=== PATIENT | female | born 1990 | race Two or more races ===

== ENCOUNTER 2025-02-26 11:46 | Emergency (ER) | payer SELFPAY ==
[~2025-02-26] VITALS: Ht 157.5 cm; Wt 82.0 kg
--- NOTE | 2025-02-26 12:15 | ED.PDOC ---
GI ASSESSMENT HPI Comments This is a 34 year old female presenting to the ED with chief complaint of abdominal pain. Patient reports that she began to experience epigastric/RUQ abdominal pain at 1am this morning with associated nausea and vomiting. Patient relays that the last food she had eaten was soup the night before. Patient states she still has her gallbladder, only having a previous appendectomy and hysterectomy. Patient denies any drug use, diarrhea, fever, chills, hematemesis, or dysuria. Chief Complaint: Abdominal Pain Time Seen by MD: 12:10 Reviewed Notes: Nurses Notes, Medications, Allergies Allergies: Coded Allergies: NO KNOWN ALLERGIES (Unverified , 02/26/25) Information Source: Patient Mode of Arrival: Ambulatory Timing: Hours Duration: Since onset Prehospital treatment: None Quality: Sharp Vomitus: Watery Stool: Normal Severity: Moderate Recent: None Recent Hx of: None Pain Location: Epigastric, RUQ Modifying Factors: Nothing Associated sign and symptoms: Nausea, Vomiting, Abdominal Pain Past Medical History PAST MEDICAL HISTORY: Denies Surgical History: Appendectomy, , Hysterectomy MEAT SOAKER History: No Pertinent MEAT SOAKER History Family History Family History: Reviewed,noncontributory to illness Social History Smoker: Non-Smoker Alcohol: Denies ETOH Use Drugs: Denies Drug Use Lives In: Home Constitutional: denies: chills, diaphoresis, fatigue, fever, malaise, sweats, weakness, others EENTM: denies: blurred vision, double vision, ear bleeding, ear discharge, ear drainage, ear pain, ear ringing, eye pain, eye redness, hearing loss, mouth pain, mouth swelling, nasal discharge, nose bleeding, nose congestion, nose pain, photophobia, tearing, throat pain, throat swelling, voice changes, others Respiratory: denies: cough, hemoptysis, orthopnea, SOB at rest, shortness of breath, SOB with excertion, stridor, wheezing, others Cardiovascular: denies: chest pain, dizzy spells, diaphoresis, Dyspnea on exertion, edema, irregular heart beat, left arm pain, lightheadedness, palpitations, PND, syncope, others Gastrointestinal: reports: abdominal pain, nausea, vomiting; denies: abdomen distended, blood streaked bowels, constipated, diarrhea, dysphagia, difficulty swallowing, hematemesis, melena, poor appetite, poor fluid intake, rectal bleeding, rectal pain, others Genitourinary: denies: abnormal vagina bleeding, burning, dyspareunia, dysuria, flank pain, frequency, hematuria, incontinence, pain, , vagina discharge, urgency, others Neurological: denies: dizziness, fainting, headache, left sided numbness, left sided weakness, numbness, paresthesia, pre-existing deficit, right sided numbness, right sided weakness, seizure, speech problems, tingling, tremors, weakness, others Musculoskeletal: denies: back pain, gout, joint pain, joint swelling, muscle pain, muscle stiffness, neck pain, others Integumetry: denies: bruises, change in color, change in hair/nails, dryness, laceration, lesions, lumps, rash, wounds, others Allergic/Immunocompromised: denies: Difficulty Healing, Frequent Infections, Hives, Itching, others Hematologic/Lymphatic: denies: anemia, blood clots, easy bleeding, easy bruising, swollen glands, others Endocrine: denies: excessive hunger, excessive sweating, excessive thirst, excessive urination, flushing, intolerance to cold, intolerance to heat, unexplained weight gain, unexplained weight loss, others Psychiatric: denies: anxiety, bipolar disorder, depression, hopeless, panic disorder, schizophrenia, sleepless, suicidal, others All Other Systems: Reviewed and Negative Physical Exam General Appearance: Moderate Distress, Obese HEENT: Normal ENT Inspection, PERRL/EOMI, Pharynx Normal, TMs Normal Neck: Full Range of Motion, Non-Tender, Normal, Normal Inspection Respiratory: Chest Non-Tender, Lungs Clear, No Accessory Muscle Use, No Respiratory Distress, Normal Breath Sounds Cardiovascular: No Edema, No JVD, No Murmur, No Gallop, Normal Peripheral Pulses, Regular Rate/Rhythm Breast Exam: Deferred Gastrointestinal: Epigastric, No Organomegaly, No Pulsatile Mass, Normal Bowel Sounds, RUQ, Soft, Tenderness (Epigastric/RUQ tenderness) Genitalia: Deferred Pelvic: Deferred Rectal: Deferred Extremities: No calf tenderness, Normal capillary refill, Normal inspection, Normal range of motion, Non-tender, No pedal edema Musculoskeletal : Apperance: Normal Neurologic: Alert, gate operator II-XII nml as Tested, No Motor Deficits, Normal Affect, Normal Mood, No Sensory Deficits Cerebellar Function: Normal Reflexes: Normal Skin: Dry, Normal Color, Warm Peripheral Pulses: 1+ carotid (R), 1+ carotid (L) Lymphatic: No Adenopathy Was a procedure done? Was a procedure done?: No GI differential Dx Differential Diagnosis: Cholecystitis, Constipation, Diverticular disease, Gastritis/PUD, Gastroenteritis, Pancreatitis, UTI, Drug toxicity, , Anemia X-Ray, Labs, Meds, VS Vital Signs Date Time Temp Pulse Resp B/P (MAP) Pulse Ox O2 Delivery O2 Flow Rate FiO2 02/26/25 13:20 Room Air* 0 21 02/26/25 13:20 98.1 86 18 103/56 (72) 99 98.1 02/26/25 11:49 98.2 72 18 108/75 98 98.2 Lab Test 02/26/25 12:54 Range/Units White Blood Count 18.4 H 4.4-10.8 10^3/uL Red Blood Count 4.87 4.0-5.20 10^6/uL Hemoglobin 14.4 12.2-16.2 g/dL Hematocrit 42.1 36.0-46.0 % Mean Corpuscular Volume 86.4 80.0-100.0 fL Mean Corpuscular Hemoglobin 29.6 28.0-32.0 pg Mean Corpuscular Hemoglobin Concent 34.3 32.0-36.0 g/dL Red Cell Distribution Width 13.4 11.8-14.3 % Platelet Count 376 140-450 10^3/uL Mean Platelet Volume 7.5 6.9-10.8 fL Neutrophils (%) (Auto) 87.5 H 37.0-80.0 % Lymphocytes (%) (Auto) 10.0 10.0-50.0 % Monocytes (%) (Auto) 2.1 0.0-12.0 % Eosinophils (%) (Auto) 0.2 0.0-7.0 % Basophils (%) (Auto) 0.2 0.0-2.0 % Neutrophils # (Auto) 16.1 H 1.6-8.6 10 ^3/uL Lymphocytes # (Auto) 1.8 0.4-5.4 10 ^3/uL Monocytes # (Auto) 0.4 0-1.3 10 ^3/uL Eosinophils # (Auto) 0 0-0.8 10 ^3/uL Basophils # (Auto) 0 0-0.2 10 ^3/uL Nucleated Red Blood Cells 0.1 % Sodium Level 139 136-145 mmol/L Potassium Level 3.6 3.5-5.1 mmol/L Chloride Level 103 98-107 mmol/L Carbon Dioxide Level 25 20-31 mmol/L Anion Gap 11 5-15 Blood Urea Nitrogen 5 L 9-23 mg/dL Creatinine 0.70 0.550-1.02 mg/dL Glomerular Filtration Rate Calc 115 >90 mL/min BUN/Creatinine Ratio 7.1 L 10.0-20.0 Serum Glucose 104 74-106 mg/dL Calcium Level 9.2 8.7-10.4 mg/dL Magnesium Level 1.9 1.6-2.6 mg/dL Total Bilirubin 0.4 0.2-1.0 mg/dL Aspartate Amino Transferase (AST) 24 13-40 U/L Alanine Aminotransferase (ALT) 21 7-40 U/L Alkaline Phosphatase 115 46-116 U/L Total Protein 7.9 5.7-8.2 g/dL Albumin 5.0 H 3.2-4.8 g/dL Lipase 28 12-53 U/L Beta HCG, Quantitative < 0.0 L 1.5-4.2 mIU/mL Current Medications Medications (Trade) Dose Ordered Sig/Marely Route Start Time Stop Time Status Last Admin Metoclopramide HCl (Reglan Injection) 10 mg ONCE ONCE IV 02/26/25 12:15 02/26/25 12:16 DC 02/26/25 13:40 Sodium Chloride 500 ml @ 500 mls/hr Q1H ONCE IVB 02/26/25 12:15 02/26/25 13:14 DC 02/26/25 13:40 Ketorolac Tromethamine (Toradol Injection) 30 mg ONCE ONCE IV 02/26/25 12:15 02/26/25 12:16 DC 02/26/25 13:[address] [address] Ph: [phone] DIAGNOSTIC IMAGING Diagnostic Imaging Report : [id number] Signed PATIENT: AUGUST GO ACCT: [id number] UNIT: [id number] : 1990 LOC: ER ROOM / BED: / AGE / SEX: 34 / F ADM STATUS: REG ER SERVICE 1206 ORDERING PHYSICIAN: LEÓN HILARIO MD PROCEDURE(s): GBUS - GALLBLADDER REASON: Right epigastric right upper quadrant abdominal pain ORDER NUMBER(s): [id number], ACCESSION NUMBER(s): [id number] INDICATION: Right epigastric right upper quadrant abdominal pain TECHNIQUE: Multiple real-time sonographic images were obtained of the right upper quadrant. COMPARISON: None FINDINGS: The liver demonstrates homogenous echotexture without focal mass lesions. The liver measures 19 cm. There is no intrahepatic or extrahepatic ductal dilatation. The common duct measures 0.6 mm. Gallstones. The gallbladder wall measures 0.4mm and is within normal limits. The right kidney measures 11 cm. The right kidney is normal in contour, size, and shape. The echogenicity is normal. There is no hydronephrosis. The pancreas is not well visualized due to overlying bowel gas. IMPRESSION: Gallstones. hepatomegaly/hepatic steatosis. ATED BY: MIKE HASKINS MD DICTATED DATE/TIME: 02/26/25 1254 SIGNED BY: MIKE HASKINS MD SIGNED DATE/TIME: 02/26/25 1254 CC: X-Ray, Labs, Meds, VS Comment Course in the emergency department eventful patient came in with a right upper quadrant abdominal [place] [address]77 with 87.5% neutrophils normal H&H Urine negative Beta hCG negative Magnesium 1.9 Lipase 28 Gallbladder ultrasound shows gallstones and hepatic steatosis Images Reviewed?: Images reviewed and evaluated by me Time of 1ST Reevaluation: 13:08 Reevaluation 1ST: Unchanged Patient Education/Counseling: Diagnosis, Treatment Family Education/Counseling: Diagnosis, Treatment SEPSIS Sepsis Screen Date sepsis recognized/suspect: Feb 26, 2025 Time Sepsis recognized/suspect: 1149 Recent Procedure: No On Antibiotic Therapy: No Respiratory Rate >20: No Heart Rate >90: No Temp<36 C (96.8 F) or >38.3 C: No SBP <90 or MAP <65 mmHG: No New Acute Mental Status Change: No Is the patient on CPAP, BIPAP,: No Physician Orders Urinalysis (02/26/25 12:06) Heplock Iv (02/26/25 12:06) Gallbladder (8/20/25 12:06) Vital Signs Date Time Temp Pulse Resp B/P (MAP) Pulse Ox O2 Delivery O2 Flow Rate FiO2 02/26/25 13:20 Room Air* 0 21 02/26/25 13:20 98.1 86 18 103/56 (72) 99 98.1 02/26/25 11:49 98.2 72 18 108/75 98 98.2 Laboratory Tests Test 02/26/25 12:54 White Blood Count 18.4 10^3/uL (4.4-10.8) H Medications Medications Dose Ordered Sig/Marely Route Start Time Stop Time Status Last Admin Dose Admin Ketorolac Tromethamine 30 mg ONCE ONCE IV 02/26/25 12:15 02/26/25 12:16 DC 02/26/25 13:40 Metoclopramide HCl 10 mg ONCE ONCE IV 02/26/25 12:15 02/26/25 12:16 DC 02/26/25 13:40 Sodium Chloride 500 ml @ 500 mls/hr Q1H ONCE IVB 02/26/25 12:15 02/26/25 13:14 DC 02/26/25 13:40 Departure 1 Departure Time of Disposition: 14:40 Impression: Primary Impression: Biliary colic Additional Impressions: Cholelithiasis Qualified Codes: K80.20 - Calculus of gallbladder without cholecystitis without obstruction Hepatic steatosis Disposition: HOME / SELF CARE / HOMELESS Condition: Fair Additional Instructions: Push fluids full liquid diet for the next three days and follow up with the PCP e-Prescriptions Naproxen (Naproxen) 375 Mg Tab 1 TAB PO BID for 10 Days, #20 TAB 5 Refills Prov: LEÓN HILARIO MD 02/26/25 Metoclopramide Hcl (Reglan) 10 Mg Tab 10 MG PO BID for 10 Days, #20 TAB Prov: LEÓN HILARIO MD 02/26/25 Discharged With: Self Critical Care Note Critical Care Time?: No Stability Stability form required: No Heart Score Heart Score: Heart Score Response (Comments) Value History N/A 0 EKG N/A 0 Age <45 0 Risk Factors No known risk factors 0 Troponin N/A 0 Total 0 I personally scribed for LEÓN HILARIO MD ([email or web address]) on 02/26/25 at 12:15. Electronically submitted by Bolivar Pena ([email or web address]). I personally scribed for LEÓN HILARIO MD ([email or web address]) on 02/26/25 at 14:13. Electronically submitted by Bolivar Pena ([email or web address]). LEÓN HILARIO MD Feb 26, 2025 12:15
--- NOTE | 2025-02-26 12:56 | DVH ---
INDICATION: Right epigastric right upper quadrant abdominal pain TECHNIQUE: Multiple real-time sonographic images were obtained of the right upper quadrant. COMPARISON: None FINDINGS: The liver demonstrates homogenous echotexture without focal mass lesions. The liver measure s 19 cm. There is no intrahepatic or extrahepatic ductal dilatation. The common duct measures 0.6 mm. Gallstones. The gallbladder wall measures 0.4mm and is within normal limits. The right kidney measures 11 cm. The right kidney is normal in contour, size, and shape. The echog enicity is normal. There is no hydronephrosis. The pancreas is not well visualized due to overlying bowel gas. IMPRESSION: Gallstones. hepatomegaly/hepatic steatosis.
[2025-02-26 13:20] VITALS: BP 103/56; PULSE 86; RESP 18; TEMP 98.1; O2SAT 99
[2025-02-26 13:20] LABS: Hematocrit 42.1 % (36.0-46.0); Hemoglobin 14.4 g/dL (12.2-16.2); Mean Corpuscular Hemoglobin 29.6 pg (28.0-32.0); Mean Corpuscular Volume 86.4 fL (80.0-100.0); Nucleated Red Blood Cells % 0.1 %
[2025-02-26 13:34] LABS: Alanine Aminotransferase 21 U/L (7-40); Alkaline Phosphatase 115 U/L (46-116); Anion Gap 11 (5-15); BUN/Creatinine Ratio 7.1 (10.0-20.0); Calcium 9.2 mg/dL (8.7-10.4); Carbon Dioxide 25 mmol/L (20-31); Chloride 103 mmol/L (98-107); Glucose 104 mg/dL (74-106); Lipase 28 U/L (12-53); Magnesium 1.9 mg/dL (1.6-2.6); Potassium 3.6 mmol/L (3.5-5.1); Sodium 139 mmol/L (136-145); Total Protein 7.9 g/dL (5.7-8.2)
[2025-02-26 13:35] LABS: Albumin 5.0 g/dL (3.2-4.8); Bilirubin, Total 0.4 mg/dL (0.2-1.0); Blood Urea Nitrogen 5 mg/dL (9-23)
[2025-02-26] MEDS: KETOROLAC TROMETH 30 MG/ML 1ML VIAL IV ONE (13:40)
[2025-02-26] MEDS: SODIUM CHLORIDE 0.9% 500 ML IVB ONE (13:40)
[2025-02-26] MEDS: METOCLOPRAMIDE HCL 5MG/ml INJ 2ml VIAL IV ONE (13:40)
[2025-02-26] MEDS ORDERED: METO-281 PO (14:57)
[2025-02-26] MEDS ORDERED: NAPR-957 PO (14:57)
== END 2025-02-26 15:10 | disposition home or self-care (01) ==
LOC: ER 11:46
DX: K80.70 Calculus of gallbladder and bile duct without cholecystitis without obstruction (principal); K80.20 Calculus of gallbladder without cholecystitis without obstruction; K76.0 Fatty (change of) liver, not elsewhere classified; Z90.710 Acquired absence of both cervix and uterus; Z90.49 Acquired absence of other specified parts of digestive tract; Z79.899 Other long term (current) drug therapy
CPT/HCPCS: 36415; 76705; 80053; 83690; 83735; 84702; 85025; 96361; 96374; 96375; 99285; J1885; J2765; J7040